=== PATIENT | female | born 1985 | race Caucasian/White ===

== ENCOUNTER 2016-09-18 18:40 | Emergency (ER) | payer OTHER ==
--- NOTE | ~2016-09-18 | CR63 ---
[facility] A Service of [facility] RADIOLOGY TEXT RESULTS PATIENT: LATRELL VILLATORO LOCATION: SED : [birth year] UNIT #: [id number] AGE: [address]: Tisha Infante APRN SEX: F ORDER DR: [id number] [address] [address] [id number] E MR#: [id number] Acc #: [id number] NAME: LATRELL VILLATORO : 1985 SEX: F STUDY DATE/TIME: 09/18/2016 18:47 UNIT: SED ROOM: STUDY DESCRIPTION: CR Chest 2 View Attending Physician: Tisha Infante A.P.R.N. Referring Physician: Tisha Infante A.P.R.N. Ordering Physician: Tisha Connors A.P.R.N. Primary Care Physician: Crow Robles M.D. MEDICAL IMAGING REPORT This report is preliminary unless electronic signature is present. EXAM 2-view chest HISTORY Cough, chest pain with coughing x3 days half pack per day smoker. COMPARISON 04/11/2015 FINDINGS PA and lateral examination of the chest upright shows a good expansion of the parenchyma with a normal distribution of the pulmonary vascularity. There is no indication of congestion, effusion, infiltrate, tumor, or nodular density. The pleural reflections and diaphragmatic contours are normal. The cardiac silhouette and mediastinal anatomy is within normal limits. IMPRESSION Normal chest. Dictated by... Kit Estrada M.D. THIS IS AN ELECTRONICALLY VERIFIED REPORT Kit Estrada M.D. at 09/19/2016 8:09 PM TERRY/brandon TD: 09/19/2016 05:21 JOB #: [id number] MEDICAL IMAGING REPORT [facility] A Service of [facility] RADIOLOGY TEXT RESULTS PATIENT: LATRELL VILLATORO LOCATION: SED : [birth year] UNIT #: [id number] AGE: [address]: Tisha Infante APRN SEX: F ORDER DR: Page 1 of 1
[~2016-09-18 18:40] MED LIST: AMOXICILLIN PO; AMOXICILLIN875 MG PO; BACTRIM DS TABL1 TA1 PO; CIPRO PO; CLARITIN10 M2 PO; CLARITIN10 M3 PO; DIFLUCAN PO; FLAGYL PO; IBUPROFEN800 MG PO; LORTAB 5-325 M1 EACH PO; MACROBID100 M1 PO; MEDROL4 MG/DOSE- PO; MICONAZOLE NITR TOP; MONDOXYNE NL100 MG PO; MULTIVITAMIN1 UDCAP PO; NO MEDICATIONS; NORCO1 TAB 10/3 PO; OMEPRAZOLE20 M2 PO; PANTOPRAZOLE SO40 MG PO; PYRIDIUM PO; ROBITUSSIN A-C S5 ML PO; TYLENOL #3 PO; VOLTAREN75 MG PO; ZYPREXA10 MG
== END 2016-09-18 19:17 | disposition home or self-care (01) ==
LOC: SED 18:40
DX: R05 Cough (principal); F17.210 Nicotine dependence, cigarettes, uncomplicated; Z90.49 Acquired absence of other specified parts of digestive tract; Z98.51 Tubal ligation status
CPT/HCPCS: 71020; 99283

== ENCOUNTER 2016-11-06 12:49 | Emergency (ER) | payer OTHER ==
--- NOTE | ~2016-11-06 | CR58 ---
[facility] A Service of [facility] RADIOLOGY TEXT RESULTS PATIENT: LATRELL VILLATORO LOCATION: SED : [birth year] UNIT #: [id number] AGE: [address]: Danielle Cotter SEX: F ORDER DR: [id number] [address] [address] [id number] E MR#: [id number] Acc #: [id number] NAME: LATRELL VILLATORO. : 1985 SEX: F STUDY DATE/TIME: 11/06/2016 13:30 UNIT: SED ROOM: STUDY DESCRIPTION: CR Cervical Spine 2 or 3 Views Attending Physician: Danielle Cotter Pa-C Ordering Physician: Danielle Cotter Pa-C Primary Care Physician: Crow Robles M.D. MEDICAL IMAGING REPORT This report is preliminary unless electronic signature is present. EXAM Cervical spine series. DATE OF EXAM 11/06/2016, 1330 hours. CLINICAL HISTORY Patient fell backwards and hit her head on 11/01/2016. Pain in back of head, neck pain. COMPARISON None. FINDINGS AP, lateral and open-mouth views were performed. C1 through the top of T2 are visualized. There is no prevertebral soft tissue swelling or fracture. There is straightening of the cervical spine which could be due to positioning or pain. There is no degenerative change seen. The C1-2 articulation is normal. IMPRESSION There is mild straightening of the cervical spine which is otherwise normal. There is no fracture, disc height loss or subluxation. Dictated by... Renetta Arthur M.D. THIS IS AN ELECTRONICALLY VERIFIED REPORT Renetta Arthur M.D. at 11/09/2016 9:01 AM TORIN/bakari [facility] A Service of [facility] RADIOLOGY TEXT RESULTS PATIENT: LATRELL VILLATORO LOCATION: SED : [birth year] UNIT #: [id number] AGE: [address]: Danielle Cotter SEX: F ORDER DR: TD: 11/06/2016 17:02 JOB #: [id number] MEDICAL IMAGING REPORT Page 1 of 1
== END 2016-11-06 14:26 | disposition home or self-care (01) ==
LOC: SED 12:49
DX: S16.1XXA Strain of muscle, fascia and tendon at neck level, initial encounter (principal); J45.909 Unspecified asthma, uncomplicated; F41.9 Anxiety disorder, unspecified; F17.210 Nicotine dependence, cigarettes, uncomplicated; Z88.8 Allergy status to other drugs, medicaments and biological substances; X58.XXXA Exposure to other specified factors, initial encounter; Y92.9 Unspecified place or not applicable
CPT/HCPCS: 72040; 99283